=== PATIENT | female | born 1955 | race Caucasian/White ===

== ENCOUNTER 2018-08-03 23:04 | Emergency (ER) | payer OTHER ==
[~2018-08-03] VITALS: Ht 162.6 cm; Wt 62.6 kg
[2018-08-03 23:10] VITALS: BP 189/86
--- NOTE | 2018-08-03 23:19 | PHYS DOC ---
Adult General Chief Complaint Chief Complaint: FINGER INJURY HPI HPI Patient is a 63 year old female who presents with left pinky finger injury, patient states she was petting her dog this morning, she states her finger got caught underneath the dog's collar, she states the dog moved one direction and the finger went to a different direction. She is right-handed. Review of Systems Review of Systems Constitutional: Denies fever or chills [] Musculoskeletal: Reports left pinky finger injury Integument: Denies rash or skin lesions [] Neurologic: Denies headache, focal weakness or sensory changes [] All other systems were reviewed and found to be within normal limits, except as documented in this note. Current Medications Current Medications Current Medications Medications (Trade) Dose Ordered Sig/Nick Start Time Stop Time Status Last Admin Dose Admin Lidocaine HCl (Lidocaine 1% 20ml Vial) 20 ml 1X ONCE 08/03/18 23:30 08/03/18 23:31 DC 08/03/18 23:56 20 ML Allergies Allergies Allergies Coded Allergies Type Severity Reaction Last Updated Verified No Known Drug Allergies 04/30/17 No Physical Exam Physical Exam Constitutional: Well developed, well nourished, no acute distress, non-toxic appearance. [] Skin: Warm, dry, no erythema, no rash. [] Back: No tenderness, no CVA tenderness. [] Extremities: Left pinky finger appears deformed/dislocated at the PIP joint, there is bruising on the ventral aspect of the PIP and MIP joints of the left pinky finger. There is also bruising on the PIP joint dorsal aspect. There is limited range of motion to the left pinky finger due to injury and pain. +2 left radial pulse. Adequate ulnar sensation to the left pinky finger. Cap refill less than 2 seconds the left pinky finger. Neurologic: Alert and oriented X 3, normal motor function, normal sensory function, no focal deficits noted. [] Psychologic: Affect normal, judgement normal, mood normal. [] Current Patient Data Vital Signs Vital Signs Date Time Temp Pulse Resp B/P (MAP) Pulse Ox O2 Delivery O2 Flow Rate FiO2 08/03/18 23:10 98.1 75 18 189/86 (120) 96 Room Air 98.1 EKG EKG [] Radiology/Procedures Radiology/Procedures [] Course & Med Decision Making Course & Med Decision Making Pertinent Labs and Imaging studies reviewed. (See chart for details) This is a 63-year-old female patient presenting to the ED today with dislocation of the left pinky finger. See history of present illness. Left pinky finger x-ray shows the finger is dislocated. Digital block was performed to the fingers successfully. Finger was reduced by me, post reduction x-rays interpreted by Dr. Andrade are normal. Patient was placed in a finger splint by me. Ice elevation encouraged. Follow-up with orthopedic doctor as needed. Dragon Disclaimer Dragon Disclaimer This electronic medical record was generated, in whole or in part, using a voice recognition dictation system. Departure Departure Impression: Primary Impression: Dislocation, finger closed Disposition: HOME, SELF-CARE Condition: STABLE Referrals: JOSÉ LAUREANO MD (PCP) TIERRA MALONE MD follow up as needed Patient Instructions: Finger Dislocation, Emrd-bu-Cyna Additional Instructions: You were evaluated in the emergency room for a dislocated pinky finger which was reduced. Follow-up with orthopedic doctor as needed. Ice and elevate the extremity. Scripts Hydrocodone/Apap 5-325 (NORCO 5-325 TABLET) 1 Each Tablet 1 TAB PO Q6HRS, #10 TAB Prov: NENA CALVIN APRN 08/04/18 Problem Qualifiers Primary Impression: Dislocation, finger closed Encounter type: initial encounter Qualified Codes: S63.259A - Unspecified dislocation of unspecified finger, initial encounter NENA CALVIN APRN Aug 03, 2018 23:19
[2018-08-03] MEDS ORDERED: LIDOCAINE 1% Multi-Dose 20 ML VIAL. INJ ONE (23:30)
[2018-08-04] MEDS ORDERED: HYDR-3164 PO (00:43)
--- NOTE | 2018-08-04 01:03 | RAD ---
Three-view left hand dated 08/03/2018. No comparison available. CLINICAL INDICATION: Pain after injury. FINDINGS: 3 views of left hand show dorsal medial dislocation of the fifth PIP joint. There is some cortical irregularity at the base of the fifth middle phalanx that could represent fracture. Osseous structures are otherwise intact. There is mild degenerative change of the interphalangeal joints and first carpometacarpal joint. IMPRESSION: Dorsal-ulnar dislocation at the fifth PIP joint. Possible small intra-articular fracture at the base of the fifth middle phalanx. Electronically signed by: Alexsander Dewitt MD (08/04/2018 1:01 AM) [facility]
--- NOTE | 2018-08-04 01:05 | RAD ---
3 views left small finger dated 08/04/2018. Comparison made to 08/03/2018. Clinical data indication: Reduction of dislocation. FINDINGS: 3 views left small finger show interval reduction of PIP joint dislocation. There is a small intra-articular fracture at the head of the fifth middle phalanx. There is also some cortical irregularity at the base of the fifth middle phalanx. No displaced fracture. Osseous structures otherwise intact. IMPRESSION: 1. Interval reduction of PIP joint dislocation at the fifth digit. 2. Small intra-articular fracture at the head of the fifth middle phalanx. 3. Slight cortical irregularity at the base of the fifth middle phalanx is indeterminate and could represent a small impaction fracture or chip fracture. Electronically signed by: Alexsander Dewitt MD (08/04/2018 1:02 AM) [facility]
== END 2018-08-04 00:48 | disposition home or self-care (01) ==
LOC: ER 23:04
DX: S63.287A Dislocation of proximal interphalangeal joint of left little finger, initial encounter (principal); W23.0XXA Caught, crushed, jammed, or pinched between moving objects, initial encounter; Y93.89 Activity, other specified; Y92.89 Other specified places as the place of occurrence of the external cause; Y99.8 Other external cause status
CPT/HCPCS: 26770; 73130; 73140; 99284

== ENCOUNTER → 2018-09-04 | Outpatient (CLI) | payer OTHER ==
[~2018-09-04] MED LIST: HYDR-3164 PO
[2018-09-04 23:35] LABS: BASO # 0.1 x10^3/uL (0.0-0.2); BASO % 1 % (0-3); EOS # 0.2 x10^3/uL (0.0-0.7); EOS % 2 % (0-3); HEMATOCRIT 39.5 % (36.0-47.0); HEMOGLOBIN 13.5 g/dL (12.0-15.5); LYMPH % 39 % (24-48); MEAN CORPUSCULAR HEMOGLOBIN 34 pg (25-35); MEAN CORPUSCULAR HGB CONC 34 g/dL (31-37); MEAN CORPUSCULAR VOLUME 99 fL (79-100); MONO # 0.7 x10^3/uL (0.0-1.1); MONO % 9 % (0-9); NEUT # 3.7 x10^3uL (1.8-7.7); NEUT % 48 % (31-73); PLATELET COUNT 273 x10^3/uL (140-400); RED CELL DISTRIBUTION WIDTH 13.7 % (11.5-14.5); WHITE BLOOD COUNT 7.8 x10^3/uL (4.0-11.0)
[2018-09-04 23:41] LABS: ALBUMIN 4.3 g/dL (3.4-5.0); ALBUMIN/GLOBULIN RATIO 1.1 (1.0-1.7); CALCIUM 9.8 mg/dL (8.5-10.1); CREATININE 0.9 mg/dL (0.6-1.0); GFR 62.8; POTASSIUM 4.1 mmol/L (3.5-5.1); TOTAL BILIRUBIN 0.4 mg/dL (0.2-1.0); TOTAL PROTEIN 8.1 g/dL (6.4-8.2)
[2018-09-04 23:43] LABS: CHOLESTEROL/HDL RATIO 3.6
== END | disposition home or self-care (01) ==
LOC: LAB 19:18
PROVIDERS: ATTEND Family Medicine
DX: I10 Essential (primary) hypertension (principal); E78.00 Pure hypercholesterolemia, unspecified
CPT/HCPCS: 36415; 80053; 80061; 85025

== ENCOUNTER → 2020-04-20 | Outpatient (CLI) | payer OTHER ==
[2018-11-11 20:18] VITALS: BP 125/58
[2020-04-20 07:55] LABS: BASO # 0.1 x10^3/uL (0.0-0.2); BASO % 1 % (0-3); EOS # 0.1 x10^3/uL (0.0-0.7); EOS % 1 % (0-3); HEMATOCRIT 37.9 % (36.0-47.0); HEMOGLOBIN 13.1 g/dL (12.0-15.5); LYMPH # 1.9 x10^3/uL (1.0-4.8); LYMPH % 30 % (24-48); MEAN CORPUSCULAR HEMOGLOBIN 34 pg (25-35); MEAN CORPUSCULAR HGB CONC 34 g/dL (31-37); MEAN CORPUSCULAR VOLUME 100 fL (79-100); MONO # 0.8 x10^3/uL (0.0-1.1); MONO % 13 % (0-9); NEUT # 3.6 x10^3/uL (1.8-7.7); NEUT % 55 % (31-73); PLATELET COUNT 297 x10^3/uL (140-400); RED BLOOD COUNT 3.79 x10^6/uL (3.50-5.40); RED CELL DISTRIBUTION WIDTH 13.1 % (11.5-14.5); WHITE BLOOD COUNT 6.5 x10^3/uL (4.0-11.0)
[2020-04-20 08:17] LABS: CALCIUM 9.4 mg/dL (8.5-10.1); CREATININE 0.9 mg/dL (0.6-1.0); GFR 62.6; POTASSIUM 3.7 mmol/L (3.5-5.1); TOTAL BILIRUBIN 0.2 mg/dL (0.2-1.0); TOTAL PROTEIN 7.9 g/dL (6.4-8.2)
[2020-04-20 08:21] LABS: CHOLESTEROL/HDL RATIO 2.8
[2020-04-21 04:10] LABS: HEMOGLOBIN A1C 5.3 % (4.8-5.6)
== END ==
LOC: LAB 04:49
PROVIDERS: ATTEND Family Medicine
DX: I10 Essential (primary) hypertension (principal)
CPT/HCPCS: 36415; 80053; 80061; 83036; 84443; 85025

== ENCOUNTER → 2020-05-16 | Outpatient (CLI) | payer OTHER ==
[2018-11-11 20:18] VITALS: BP 125/58
== END ==
LOC: LAB 11:44
PROVIDERS: ATTEND Internal Medicine Pulmonary Disease
DX: R05 Cough (principal); R51.9 Headache, unspecified; R53.81 Other malaise; M79.10 Myalgia, unspecified site; Z20.828 Contact with and (suspected) exposure to other viral communicable diseases
CPT/HCPCS: U0003

== ENCOUNTER → 2020-07-26 | Outpatient (CLI) | payer OTHER, MEDICARE ==
[2018-11-11 20:18] VITALS: BP 125/58
[~2020-07-26] MED LIST changes: +ZOLPIDEM 5 MG TABLET. PO ONE
--- NOTE | 2020-07-27 09:15 | SLEEP ---
DATE OF STUDY: 07/26/2020 SLEEP STUDY ATTENDING PHYSICIAN: Alexsander Cummings MD. The patient is 65-year-old who weighs 130 pounds with a BMI of 22. The patient's [place] score was 6. The patient underwent diagnostic sleep study performed at [facility]. During the night of study, the patient spent 398 minutes in bed and slept for 297 minutes. The patient's sleep efficiency was 75%. The patient's sleep architecture showed increased stage 1 and stage 2 sleep, normal slow wave and normal REM sleep. During the night of the study, the patient had 6 obstructive apneas, no mixed apneas, 4 central apneas and 9 hypopneas. The patient's AHI was 4 per hour. Supine AHI 7 per hour with a REM AHI of 9 per hour. EKG monitoring revealed normal sinus rhythm, average heart rate 73 beats per minute. Nocturnal oximetry study revealed an average oxygen saturation of 96% with the lowest of 87%. Only 2% time oxygen saturation remained between 80% and 89%. No PLMs observed. Due to low AHI, the patient did not meet the split night criteria for CPAP initiation. IMPRESSION: 1. No clinically significant sleep disorder breathing. The patient's AHI for the entire night was 4 per hour. 2. No clinically significant nocturnal hypoxia. 3. No evidence of periodic limb movements. RECOMMENDATIONS: 1. The patient did not meet the split night criteria for CPAP initiation. 2. Avoid [employer] depressants. 3. Caution regarding driving when sleepy or sleep deprived. ZAHRA PANTOJA MD DR: PETROS/elidia JOB#: [id number] / [id number] ALEXSANDER Estrada MD
== END ==
LOC: RT 18:59
PROVIDERS: ATTEND Family Medicine
DX: G47.30 Sleep apnea, unspecified (principal)
CPT/HCPCS: 95810